=== PATIENT | female | born 1970 | race Two or more races ===

== ENCOUNTER 2019-11-18 11:21 | Emergency (ER) | payer OTHER, SELFPAY ==
[2019-11-18 11:22] VITALS: BP 156/106; PULSE 86; RESP 17; TEMP 36.7; O2SAT 99; BMI 29.7
--- NOTE | 2019-11-18 11:38 | EKG12_ITS ---
Test Reason : ABD PAIN Blood Pressure : / mmHG Vent. Rate : 079 BPM Atrial Rate : 079 BPM P-R Int : 142 ms QRS Dur : 080 ms QT Int : 382 ms P-R-T Axes : 014 034 008 degrees QTc Int : 438 ms Normal sinus rhythm Normal ECG Confirmed by ALMA DAVIS, ZACHARY ([id number]), editor farm journal SURY PAREDES ([id number]) on 11/24/2019 7:58:57 AM Referred By: CELY Confirmed By:ANISH MARQUEZ MD
--- NOTE | 2019-11-18 11:38 | CT_ITS ---
STUDY: CT ABDOMEN AND PELVIS WITHOUT CONTRAST REASON FOR EXAM: Female, 49 years old. EPIGASTRIC PAIN and bloating RADIATION DOSAGE (If Supplied By Facility): CTDIvol = ( 12.30 ) mGy, DLP = ( 929.28 ) mGycm TECHNIQUE: Transaxial images were obtained from the dome of the diaphragm to the symphysis pubis without oral contrast, and without intravenous contrast. Sagittal and coronal images were reconstructed. Individualized dose optimization techniques were used for this CT. COMPARISON: None. FINDINGS: Findings suggestive of scarring and bronchiectasis in the right middle lobe with volume loss in the right middle lobe. The visualized portions of the heart are within normal limits. There is decreased attenuation of the liver consistent with steatosis. Normal gallbladder and extrahepatic biliary system. There are multiple benign calcified granulomata of the spleen. Normal pancreas. Normal bilateral adrenal glands. Mild degree of bilateral hydronephrosis and hydroureter most likely due to the markedly distended urinary bladder. There is a small hiatal hernia. Normal small intestine. Normal colon. The appendix is visualized and appears normal. Normal abdominal aorta. Normal inferior vena cava. There is borderline retroperitoneal lymphadenopathy with enlarged nodes no greater than 10mm in the short axis diameter. There is a markedly distended urinary bladder. Normal abdominal wall. Loss of the normal lumbar lordosis. CT/Abdomen/Pelvis W IV Cont ONLY IMPRESSION: Markedly distention of the urinary bladder with mild degree of bilateral hydronephrosis and hydroureter. Electronically Signed: Max Benjamin, at 13:03 EDT , Service support ,
--- NOTE | 2019-11-18 11:40 | ED.DCSUM_ITS ---
History of Present Illness Chief Complaint: Abd Pain Informant: Patient Onset: Yesterday Context: Gradual Onset Timing: Intermittent Current Severity: Moderate Maximum Severity: Moderate Narrative: The patient is a 49-year-old female with medical history significant for hypertension the presents to the emergency department with midepigastric pain, bloating, and high blood pressure. Patient states it has began yesterday. She describes a burning and bloating sensation in her midepigastric area. Family was concerned because her blood pressure was in the 160 systolic. She has been compliant with her antihypertensives which are Cozaar and losartan. She denies nausea or vomiting. Her only prior abdominal surgical history is of tubal ligation. Patient did have similar symptoms in April of this year. She underwent upper endoscopy which was unremarkable. She has been on a PPI since. Prior similar symptoms: No Recent Illness/Hospitalization: No Past Medical History - Allergies and Home Meds Allergies/Adverse Reactions: Allergies No Known Allergies Allergy (Verified 11/18/19 11:21) Primary Care Physician: NOT,DEFINED [NON-STAFF] - Prior records reviewed: Yes Past Medical History: - - Hypertension, thyroid disease Surgical History: noncontributory Review of Systems General: Denies: Chills, Fever, Sweats Eyes: Denies: Visual changes - bilaterally, Diplopia ENT: Denies: Rhinorrhea, Sore throat Cardiovascular: Denies: Chest pain, Palpitations Respiratory: Denies: Dyspnea, Cough, Dyspnea on exertion Gastrointestinal: Reports: Abdominal pain, Nausea. Denies: Vomiting, Diarrhea, Melena, Hematochezia Genitourinary: Denies: Dysuria, Hematuria, Frequency Musculoskeletal: Denies: Back pain, Extremity Pain Skin: Denies: Rash, Wounds Neurological: Denies: Headache, Weakness, Numbness Physical Exam Vital Signs/Narrative: Vital Signs Temp Pulse Resp BP Pulse Ox 11/18/19 11:22 98.1 F 86 17 156/106 H 99 Inital Vital Signs reviewed: Yes General: Well nourished, Well developed, No Acute Distress Head: Normocephalic, Atraumatic Eyes: Perrl, EOMI ENT: Moist mucous membranes, No rhinorrhea Neck: Supple, Nontender Cardiovascular: Regular rate, Regular rhythm, No murmurs Respiratory: No distress, CTA bilaterally, Chest nontender Abdomen: Soft, Nontender, Nondistended, Normal bowel sounds Back: Nontender, Normal Inspection Extremities: Nontender, No edema Skin: Normal color, No rash Neurological: Alert, Oriented x3, Cranial nerves II-XII grossly intact, Normal Strength, Normal Sensation Psychological: Normal affect, Normal Mood Diagnostic/Tx/Re-eval Clinical Impression(s) from Imaging Studies Abdomen/Pelvis CT 11/18/19 11:38 IMPRESSION: Markedly distention of the urinary bladder with mild degree of bilateral hydronephrosis and hydroureter. Electronically Signed: Max Benjamin, at 13:03 EDT , Service support , Abnormal Lab Results 11/18/19 11/18/19 11:15 11:15 WBC 6.8 RBC 4.66 Hgb 11.6 L Hct 35.1 L MCV 75.3 L MCH 24.9 L MCHC 33.0 RDW Std Deviation 36.7 RDW Coeff of Silvia 13.7 Plt Count 200 MPV 9.3 Immature Gran % (Auto) 0.400 Neut % (Auto) 77.2 H Lymph % (Auto) 18.0 L [place] % (Auto) 3.4 Eos % (Auto) 0.9 Baso % (Auto) 0.1 Absolute Neuts (auto) 5.3 Absolute Lymphs (auto) 1.23 Nucleated RBC % 0 Sodium 125 L Potassium 3.6 Chloride 95 L Carbon Dioxide 23.0 Anion Gap 7 BUN 6 L Creatinine 0.72 Estim Creat Clear Calc 66.40 Est GFR (MDRD) Af Amer 110 Est GFR (MDRD) Non-Af 91 BUN/Creatinine Ratio 8.3 L Glucose 116 H Calcium 9.0 Total Bilirubin 0.70 AST 17 ALT 24 Alkaline Phosphatase 167 H Troponin I < 0.015 Total Protein 8.0 Albumin 3.9 Globulin 4.1 Albumin/Globulin Ratio 1.0 Lipase 193 - Rhythm Strip Rhythm Strip: Sinus Rhythm Rate: 80 Ectopy: None - EKG Initial EKG Interpretation: Sinus Rhythm, No Acute Injury Pattern Prior: No Prior - Medical Decision Making The patient presents with midepigastric burning and nausea. Her abdomen is soft and nontender. Given her age, EKG was obtained. It was sinus rhythm without acute ischemic change. She actually had an old EKG with her and it was unchanged. Metabolic work-up was pursued. She has mild hyponatremia, but I doubt this is the cause of her symptoms. Patient underwent CT imaging. It does demonstrate small hiatal hernia. There was also distended bladder, but after imaging, the patient urinated and had no evidence of retention. My suspicion is that this is likely GERD versus symptomatic hiatal hernia. She will be treated with a GI cocktail. She will continue her PPI and I will add Carafate and Zofran. She will be discharged home. Impression 1. Midepigastric pain 2. GERD ED Disposition - Plan for ED Patient: Instructions: ED PEPTIC ULCER vs GASTRITIS Prescriptions: Sucralfate [Carafate] 1 gm PO 4X/DAY #90 tab Prescription Printed Ondansetron [Zofran Odt] 4 mg PO Q8H PRN PRN #10 tab PRN Reason: Nausea Prescription Printed Referrals: Yee Sampson MD [STAFF PHYSICIAN] -
--- NOTE | 2019-11-18 11:40 | NURSING ---
NO OLD EKGS
[2019-11-18] MEDS: 0.9% Normal Saline 1,000 ML 1000 ML IV (11:48)
[2019-11-18] MEDS: Ondansetron 4 MG/2 ML Vial IV (11:57)
[2019-11-18 12:07] LABS: Absolute Lymphocyte Count 1.23 X10^3/uL (0.83-4.51); Absolute Neutrophil Count 5.3 X10^3/uL (2.0-7.7); Basophil# 0.01 X10^3/uL; Basophil% 0.1 % (0-1); Eosinophil# 0.06 X10^3/uL; Eosinophils% 0.9 % (0-5); Hematocrit 35.1 % (37-47); Hemoglobin 11.6 g/dL (12.0-15.0); Lymphocyte # 1.23 X10^3/ul (4.0); Mean Corpuscular Hgb 24.9 pg (27.0-32.0); Mean Corpuscular Volume 75.3 fL (81-99); Mean Platelet Vol. 9.3 fl (6.2-12.0); Monocyte# 0.23 X10^3/uL; Monocyte% 3.4 % (0-10); NRBC Flagged by Analyzer 0 % (0-5); Neutrophil # 5.28 X10^3/uL (2.7-7.7); Neutrophil % 77.2 % (47-70); Platelet Count 200 K/mm3 (150-450); RBC Distribution Width CV 13.7 % (11.6-14.6); RBC Distribution Width SD 36.7 fl (35.1-43.9); Red Blood Count 4.66 M/mm3 (4.2-5.4); White Blood Count 6.8 K/mm3 (4.4-11.0)
[2019-11-18 12:28] LABS: AST(SGOT) 17 U/L (15-37); Alanine Aminotransfer ALT/SGPT 24 U/L (13-56); Albumin, Serum 3.9 g/dL (3.2-5.0); Alkaline Phosphatase 167 U/L (45-117); Anion Gap 7 (5-15); BUN 6 mg/dL (7-18); BUN/Creat Ratio 8.3 RATIO (10-20); Chloride 95 mmol/L (98-107); Creatinine, Serum 0.72 mg/dL (0.55-1.02); EST Glomerular Filtration Rate 91 mL/min (>60); Est Glom Filt Rate - Afr Amer 110 mL/min (>60); Globulin 4.1 g/dL (2.2-4.2); Glucose 116 mg/dL (74-106); Lipase 193 U/L (73-393); Potassium 3.6 mmol/L (3.5-5.1); Sodium Level 125 mmol/L (136-145)
[2019-11-18] MEDS: Mag Hydrox/Al Hydrox/Simeth 30 ML UDC PO (13:38)
[2019-11-18 13:39] VITALS: BP 130/86; RESP 16
== END 2019-11-18 13:40 | disposition home or self-care (01) ==
LOC: ED 12:23
PROVIDERS: Emergency Provider Emergency Medicine
DX: R10.13 Epigastric pain (principal); K21.9 Gastro-esophageal reflux disease without esophagitis; E07.9 Disorder of thyroid, unspecified; I10 Essential (primary) hypertension; Z79.899 Other long term (current) drug therapy
CPT/HCPCS: 74177; 80053; 83690; 84484; 85025; 93005; 96374; 99284; J7030; Q9967; A4216; J2405